=== PATIENT | male | born 1955 ===

== ENCOUNTER → 2020-04-23 | Outpatient (REF) | payer OTHER ==
[2020-04-23 14:51] LABS: CREATININE, URINE 67.4 MG/DL; MALB URINE SIEMENS 5.1 MG/L; MAU/CREAT RATIO 7.5 MCG/MG (0.0-30.0)
== END ==
LOC: M LAB REF 13:08
PROVIDERS: ATTEND Nurse Practitioner Family
DX: E11.65 Type 2 diabetes mellitus with hyperglycemia (principal)